=== PATIENT | male | born 1960 | race Caucasian/White ===

== ENCOUNTER 2025-02-19 17:06 | Emergency (ER) | payer OTHER, SELFPAY ==
[2025-02-19 17:07] VITALS: PULSE 85; TEMP 37; O2SAT 96; BMI 33.0
[2025-02-19 17:13] VITALS: BP 128/70
--- NOTE | 2025-02-19 17:22 | ED_ITS ---
HPI HPI - Back Pain/Injury General Chief Complaint: Back Pain/Injury Stated Complaint: BACK INJURY Time Seen by Provider: 02/19/25 17:10 Source: patient Mode of arrival: ambulance Limitations: no limitations History of Present Illness HPI Narrative: Patient is a 64-year-old male who presents to the emergency department by ambulance for pain in the left low back after an injury while getting out of his car earlier today. He states several hours ago he was getting out of his car when he twisted his low back. He points to pain in the left low back, EMS reported pain radiation into the legs but the patient denies this. No numbness or tingling to the lower extremities. No medications were given by EMS. Patient had no fall or direct injury. Related Data Home Medications ?Medication ?Instructions ?Recorded ?Confirmed losartan 100 mg tablet 100 mg PO DAILY 02/19/25 02/19/25 metoprolol succinate 50 mg 50 mg PO DAILY 02/19/25 02/19/25 tablet,extended release 24 hr spironolactone 25 1 tab PO DAILY 02/19/25 02/19/25 mg-hydrochlorothiazide 25 mg tablet Previous Rx's ?Medication ?Instructions ?Recorded hydrocodone 5 mg-acetaminophen 325 1 tab PO Q6H PRN pain 3 days #12 02/19/25 mg tablet tabs methocarbamol 750 mg tablet 750 mg PO TID PRN pain #20 tabs 02/19/25 methylprednisolone 4 mg tablets in See Rx Instructions .Route 02/19/25 a dose pack (Medrol (Kana)) .COMPLEX #21 ea Allergies Allergy/AdvReac Type Severity Reaction Status Date / Time erythromycin base AdvReac Severe Anaphylaxis Verified 02/19/25 17:12 Opioid HPI Opioid Management Most Recent Opioid Data: Last JAN Pain Assessment 02/19/25 17:30 Review of Systems ROS Constitutional Denies: fever or chills Ears, nose, mouth, and throat Denies: throat pain or nasal congestion Cardiovascular Denies: chest pain Respiratory Denies: shortness of breath Gastrointestinal Denies: abdominal pain, nausea or vomiting Genitourinary Denies: painful urination Musculoskeletal Reports: back pain; Denies: neck pain, extremity pain or extremity swelling Integumentary/Breast Denies: rash Neurological Denies: numbness in extremities or weakness in extremities Hematologic/Lymphatic Denies: easy bruising or easy bleeding PFSH PFSH Social History Little interest or pleasure in doing things: not at all Feeling down, depressed, or hopeless: not at all Exam Narrative Exam Narrative: Gen.: Awake, alert, in no distress Head: Normocephalic, atraumatic ENT: Moist mucous membranes Respiratory: No respiratory distress Gastrointestinal: Abdomen is soft, nondistended and nontender to palpation Extremities: Moves extremities equally, normal dorsiflexion and plantarflexion of the lower extremities. No decrease in sensation to the medial thighs, normal hip flexion of the left lower extremity. Diffuse tenderness of the left low back, no spinal tenderness or obvious deformity. Psych: Normal mood and affect Neuro: No focal neuro deficit Skin: Warm, dry, intact Constitutional Vital Signs, click to edit/add: Last Vital Signs Temp 98.6 F 02/19/25 17:07 Pulse 70 02/19/25 19:43 Resp 18 02/19/25 19:43 BP 139/84 02/19/25 19:43 Pulse Ox 98 02/19/25 19:43 O2 Del Method Room Air 02/19/25 17:07 Course Vital Signs Vital signs: Vital Signs Temperature 98.6 F 02/19/25 17:07 Pulse Rate 85 02/19/25 17:07 Respiratory Rate 24 H 02/19/25 17:07 Pulse Oximetry 96 02/19/25 17:07 Oxygen Delivery Method Room Air 02/19/25 17:07 Temperature 98.6 F 02/19/25 17:07 Pulse Rate 70 02/19/25 19:43 Respiratory Rate 18 02/19/25 19:43 Blood Pressure 139/84 02/19/25 19:43 Pulse Oximetry 98 02/19/25 19:43 Oxygen Delivery Method Room Air 02/19/25 17:07 MDM - Back Pain/Injury MDM Narrative Medical decision making narrative: The patient was brought to the emergency department by ambulance ([facility]) from [place] where he is a resident. He does not have a ride home. He was instructed in my initial evaluation that he would need to find a ride home as we are going to give him pain medication. He was medicated for pain with intramuscular injections of Dilaudid, Norflex, Toradol and he is relaxing more comfortably on reevaluation. CT scan of the lumbar spine shows no evidence of acute process. The CT result took over 4 hours to result from the radiologist. Patient will be sent home with a short course of analgesics, muscle relaxants and steroid taper. Follow-up with PCP and return to the ER if symptoms change or worsen. After the patient had been in the emergency department for over 4 hours, he states he does not have a ride home and will try to call a family member or friend to pick him up. He is relaxed, watching a baseball game on TV on reevaluation. SUPERVISED APC VISIT, PHYSICIAN ATTESTATION: Based on the medical record the care appears appropriate. ? Medical Records Attestation: I reviewed the patient's medical records. Imaging Data CT lumbar spine: Attestation: I have reviewed the pertinent imaging results. Discharge Plan Discharge Chief Complaint: Back Pain/Injury Clinical Impression: Low back pain, Lumbar strain Patient Disposition: Home, Self-Care Time of Disposition Decision: 21:21 Condition: Good Prescriptions / Home Meds: New hydrocodone-acetaminophen 5-325 mg tablet 1 tab PO Q6H PRN (Reason: pain) 3 Days Qty: 12 0RF Rx Instructions: M54.5 methylprednisolone [Medrol (Kana)] 4 mg tablets,dose pack See Rx Instructions .ROUTE .COMPLEX Qty: 21 0RF Rx Instructions: Taper as directed methocarbamol 750 mg tablet 750 mg PO TID PRN (Reason: pain) Qty: 20 0RF No Action metoprolol succinate 50 mg tablet extended release 24 hr 50 mg PO DAILY spironolacton-hydrochlorothiaz 25-25 mg tablet 1 tab PO DAILY losartan 100 mg tablet 100 mg PO DAILY Print Language: Danish Instructions: Muscle Strain (ED), Acute Low Back Pain (ED) Referrals: TIAN DICKEY [Physician] - 1 week
[2025-02-19] MEDS: ONDANSETRON PF 4 MG/2 ML VIAL IV (17:30)
[2025-02-19] MEDS: ORPHENADRINE 60 MG/2 ML VIAL IV (17:30)
[2025-02-19] MEDS: HYDROMORPHONE HCL 1 MG/ML CARTRIDGE IV (17:30)
[2025-02-19] MEDS: KETOROLAC TROMETHAMINE 30 MG/ML VIAL IVP (17:30)
[2025-02-19 19:43] VITALS: BP 139/84; PULSE 70; O2SAT 98
[2025-02-19] MEDS: OXYCODONE HCL/ACETAMINOPHEN 5MG/325MG 1 TAB PO (21:33)
== END 2025-02-19 21:45 | disposition home or self-care (01) ==
PROVIDERS: Emergency Provider Emergency Medicine
DX: S39.012A Strain of muscle, fascia and tendon of lower back, initial encounter (principal); X50.1XXA Overexertion from prolonged static or awkward postures, initial encounter
CPT/HCPCS: 72131; 96374; 96375; 99285; J1171; J1885; J2360; J2405